=== PATIENT | female | born 1960 | race Caucasian/White ===

== ENCOUNTER 2024-04-07 09:52 | Emergency (ER) | payer BC ==
[~2024-04-07] VITALS: Ht 160 cm; Wt 84.1 kg
[2024-04-07 10:05] VITALS: TEMP 98
[2024-04-07] MEDS ORDERED: NS 1,000 ML IV ONE (10:30)
[2024-04-07 11:54] VITALS: BP 122/96; PULSE 86
== END 2024-04-07 11:55 | disposition home or self-care (01) ==
LOC: COL.ER 09:52
DX: E86.0 Dehydration (principal)
CPT/HCPCS: J7030